=== PATIENT | female | born 1990 | race African-American/Black ===

== ENCOUNTER 2021-04-08 08:58 | Emergency (ER) | payer MEDICAID, OTHER ==
[~2021-04-08] VITALS: Ht 175.3 cm; Wt 64.0 kg
[2021-04-08 09:08] VITALS: BP 121/59
[2021-04-08] MEDS ORDERED: CARBAMIDE PEROXIDE 6.5% OTIC SOLN 15ML LEFT EAR ONE (09:30)
[2021-04-08] MEDS ORDERED: CARB15DR68 OT (10:30)
== END 2021-04-08 10:38 | disposition home or self-care (01) ==
LOC: ER 08:58
DX: H61.22 Impacted cerumen, left ear (principal); Z88.6 Allergy status to analgesic agent
CPT/HCPCS: 99282